=== PATIENT | female | born 1990 | race Caucasian/White ===

== ENCOUNTER 2024-07-27 06:31 | Day surgery (SDC) | payer OTHER, SELFPAY | END 2024-07-27 15:54 | disposition home or self-care (01) | LOC: GI 06:31 | PROVIDERS: ATTENDING PHYSICIAN Internal Medicine Gastroenterology | DX: C20 Malignant neoplasm of rectum (principal); K62.5 Hemorrhage of anus and rectum | CPT/HCPCS: 45385; 45381; 88305; 88342 ==

== ENCOUNTER → 2024-08-01 14:02 | Outpatient (REF) | payer OTHER, SELFPAY | LOC: RAD 14:02 | PROVIDERS: ATTENDING PHYSICIAN Internal Medicine Gastroenterology; FAMILY PHYSICIAN Family Medicine | DX: K62.5 Hemorrhage of anus and rectum (principal); K62.89 Other specified diseases of anus and rectum | CPT/HCPCS: 71260; 74177; Q9967 ==

== ENCOUNTER → 2024-08-08 10:54 | Outpatient (REF) | payer OTHER, SELFPAY | LOC: MRI 3T 10:54 | PROVIDERS: ATTENDING PHYSICIAN Surgery; FAMILY PHYSICIAN Family Medicine | DX: C20 Malignant neoplasm of rectum (principal) | CPT/HCPCS: 72197; A9575 ==

== ENCOUNTER → 2024-08-15 10:15 | Outpatient (REF) | payer OTHER, SELFPAY ==
[2024-08-15 11:13] LABS: % Basophils 0.7 % (0-2); % Eosinophils 2.1 % (0-6); % Immature Granulocytes 0.2 % (0-0.5); % Monocytes 6.9 % (1.7-9.3); % Neutrophils 60.1 % (42.2-75.2); Absolute Eosinophils 0.1 10^3/uL (0-0.7); Absolute Lymphocytes 1.3 10^3/uL (1.2-3.4); Absolute Monocytes 0.3 10^3/uL (0.1-0.6); Absolute Neutrophils 2.5 10^3/uL (1.4-6.5); Hematocrit 39.5 % (37.0-47.0); Hemoglobin 13.5 g/dL (12.0-16.0); Mean Corp Hgb Conc. 34.2 g/dL (33.0-37.0); Mean Corpuscular Hgb 28.4 pg (27.0-31.0); Mean Corpuscular Volume 83.2 fL (81.0-99.0); Mean Platelet Volume 12.1 fL (7.4-10.4); Nucleated Red Blood Cells % 0 %; Platelet Count 226 10^3/uL (130-400); Red Blood Cell Count 4.75 10^6/uL (4.20-5.40); White Blood Cell Count 4.2 10^3/uL (4.8-10.8)
[2024-08-15 12:00] LABS: ALT (SGPT) 15 U/L (0-35); AST (SGOT) 20 U/L (14-36); Albumin 4.8 g/dl (3.5-5.0); Alkaline Phosphatase 31 U/L (38-126); Blood Urea Nitrogen 9 mg/dl (7-17); Calcium 9.8 mg/dl (8.4-10.2); Carbon Dioxide 24 mmol/L (22-30); Chloride 108 mmol/L (98-107); Glucose 84 mg/dl (70-99); Iron 95 ug/dl (37-170); Potassium 4.5 mmol/L (3.5-5.1); Sodium 142 mmol/L (135-145); Total Bilirubin 0.8 mg/dl (0.2-1.3); Total Protein 7.8 g/dl (6.3-8.2); eGFR > 60.00
[2024-08-15 12:09] LABS: Percent Saturation 28 % (20-50); Total Iron Binding Capacity 332 ug/dl (265-497)
[2024-08-15 12:27] LABS: Ferritin 16.3 ng/ml (6.24-137)
[2024-08-15 13:11] LABS: HCG, Urine Qualitative Screen Negative
== END ==
LOC: REG 10:15
PROVIDERS: ATTENDING PHYSICIAN Internal Medicine Hematology & Oncology; FAMILY PHYSICIAN Family Medicine; OTHER PHYSICIAN Radiology Radiation Oncology
DX: C20 Malignant neoplasm of rectum (principal); D52.9 Folate deficiency anemia, unspecified
CPT/HCPCS: 36415; 80053; 81025; 82728; 83540; 83550; 85025

== ENCOUNTER 2024-08-29 06:31 | Day surgery (SDC) | payer OTHER, SELFPAY ==
[2024-08-29 11:56] VITALS: BP 119/72; BMI 25.3
[2024-08-29] MEDS: TYLENOL 1000 MG PO (12:03)
[2024-08-29] MEDS: NORMOSOL-R/PLASMALYTE-A 1000 IV (12:03)
[2024-08-29 13:32] VITALS: BP 95/59
[2024-08-29 13:34] VITALS: BP 96/60
[2024-08-29 13:45] VITALS: BP 96/53
[2024-08-29 14:00] VITALS: BP 90/56
[2024-08-29 14:15] VITALS: BP 96/57
== END 2024-08-29 14:55 | disposition home or self-care (01) ==
LOC: SDS 06:31
PROVIDERS: ATTENDING PHYSICIAN Surgery
DX: C20 Malignant neoplasm of rectum (principal)
CPT/HCPCS: 36561; 45330; 71045; 76000; C1769; C1788

== ENCOUNTER → 2024-09-10 13:41 | Outpatient (REF) | payer OTHER, SELFPAY ==
[2024-09-10 14:07] VITALS: BP 101/72; BP_SYST 80
[2024-09-10 14:54] VITALS: BP 103/53
== END ==
LOC: RADI 13:41
PROVIDERS: ATTENDING PHYSICIAN Internal Medicine Hematology & Oncology; FAMILY PHYSICIAN Family Medicine
DX: C20 Malignant neoplasm of rectum (principal)
CPT/HCPCS: 36573; C1751

== ENCOUNTER 2024-09-25 15:39 | Emergency (ER) | payer OTHER, SELFPAY ==
[2024-09-25 15:43] VITALS: BP 108/67
[2024-09-25 16:17] LABS: HCG, Serum Qualitative Screen Negative
[2024-09-25 16:32] LABS: Hematocrit 35.6 % (37.0-47.0); Hemoglobin 12.5 g/dL (12.0-16.0); Mean Corp Hgb Conc. 35.1 g/dL (33.0-37.0); Mean Corpuscular Volume 81.1 fL (81.0-99.0); Platelet Count 183 10^3/uL (130-400); Red Cell Dist. Width 13.2 % (11.5-14.5)
[2024-09-25 16:33] LABS: Absolute Neutrophils -Man Diff 6.6 10^3/uL (1.4-6.5)
[2024-09-25 16:34] LABS: ALT (SGPT) 13 U/L (0-35); AST (SGOT) 21 U/L (14-36); Albumin 4.4 g/dl (3.5-5.0); Alkaline Phosphatase 39 U/L (38-126); Blood Urea Nitrogen 9 mg/dl (7-17); Calcium 9.4 mg/dl (8.4-10.2); Carbon Dioxide 26 mmol/L (22-30); Chloride 108 mmol/L (98-107); Glucose 144 mg/dl (70-99); Normal RBC Morphology Yes; Platelets Checked Yes; Potassium 3.8 mmol/L (3.5-5.1); Sodium 140 mmol/L (135-145); Total Cells Counted 100; Total Protein 7.2 g/dl (6.3-8.2); eGFR > 60.00
[2024-09-25 17:01] VITALS: BP 96/59
[2024-09-25 18:00] VITALS: BP 88/53
--- NOTE | 2024-09-25 18:18 | ED.GENMED ---
History of Present Illness
General
Chief Complaint: Dizziness
Source: patient
Exam Limitations: none
Time Seen by Provider: 09/25/24 18:16
Nursing documentation reviewed up to this point in time: agreed with
History of Present Illness
History of Present Illness:
Note:
CHIEF COMPLAINT(S)
Right arm weakness and pins and needles sensation in both hands following chemotherapy.
HISTORY OF PRESENT ILLNESS
The patient is a 34-year-old female with a history of colorectal cancer currently undergoing chemotherapy treatment. She received her second infusion today at [facility] from 10:00 AM to 2:30 PM. Post-infusion, she experienced tunnel vision and a
sensation of weakness in her right arm around 2:35 PM. She did not attempt to move the arm, but reported decreased group underwriter strength. Her symptoms included pins and needles in both hands but no numbness. The sensation lasted approximately 20 minutes and
was self-managed with deep breathing. She reports no involvement of her legs, facial asymmetry, or vision changes.
The patient has a known blood clot at her port site, identified by computed tomography (CT) during a prior visit, which is being managed with Apixaban. A peripherally inserted central catheter (PICC) line was inserted. During todays visit, she was
advised by her healthcare team to seek evaluation for her symptoms due to potential complications associated with the right-sided weakness and existing blood clot.
PAST MEDICAL AND SURIGICAL HISTORY
Colorectal cancer with active chemotherapy treatment.
CHRONIC MEDICAL CONDITIONS SIGNIFICANTLY AFFECTING CARE
Presence of a blood clot at the port site managed with Apixaban.
PHYSICAL EXAM
General: no apparent distress, not acutely ill
Neck: supple. no meningeal signs. normal posterior pharynx
Heart: s1/s2 regular rate and rhythm, no murmur. equal radial
pulses.
HEENT: Pupils equal round reactive to light, EOMI
Lungs: no acute respiratory distress. clear bilaterally
Abdomen: normal bowel sounds. not tender. no CVAT
Neuro: alert and oriented. no focal neurological deficits cranial nerves II through XII intact
Skin: no rash
Psychiatric: well kept. interactive and cooperative
Extremities: no edema. no calf tenderness. negative homans. good distal pulses
- Port noted in the left upper chest and right antecubital region inspection.
- Nursing notes reviewed and vital signs reviewed.
PLAN
Discussion with a neurologist to evaluate the potential need for additional investigation or intervention related to right arm weakness and sensory changes.
DIFFERENTIAL DIAGNOSIS
The Differential Diagnosis includes, in no particular order and is not limited to:
1. Chemotherapy-induced neuropathy
2. Transient ischemic attack
3. Cerebral vascular event
4. Upper extremity deep vein thrombosis
5. Peripheral neuropathy secondary to medication
6. Anxiety-induced hyperventilation or panic attack
7. Central nervous system metastasis
8. Electrolyte imbalance
9. Musculoskeletal strain or injury
10. Hypersensitivity reaction to chemotherapy agents
Note:
CARE-UPDATE
09/25/24 - 19:[address] Mcintyre, neurologist. Plan includes ordering CT head and CT angiography of the head and neck. Patient consented to proceed with the suggested evaluations.
CARE-UPDATE
09/25/24 - 20:02
CT head and neck angiography reveals no acute findings, and there is no suspicion of intracranial hemorrhage, intramedullary hemorrhage, or cerebrovascular accident. The patient is stable for discharge and will continue taking Eliquis as previously
prescribed.
Disposition:
SUMMARY OF ENCOUNTER
The patient, a 34-year-old female undergoing chemotherapy for colorectal cancer, presented with right arm weakness and a sensation of pins and needles in both hands after her second infusion. These symptoms lasted for about 20 minutes and were
self-managed. Given her history, the possibility of complications such as ischemic episodes or neuropathy prompted further evaluation. Imaging studies were performed, including a CT head and neck angiography, which revealed no acute findings. The
neurology consultation facilitated the decision for further management.
DISPOSITION
Discharge
ASSESSMENT
Transient right arm weakness, paresthesias, anxiety.
MANAGEMENT OF THE PATIENTS CARE WAS DISCUSSED WITH
Dr. Mcintyre, neurologist.
PLAN
The patient is stable for discharge with instructions to continue treatment with apixaban (Eliquis) as prescribed.
INDEPENDENT REVIEW OF LABS AND INTERPRETATION OF TESTS
- My independent interpretation of CT head and neck angiography shows no acute findings or evidence of intracranial hemorrhage, intramedullary hemorrhage, or cerebrovascular accident.
PATIENT EDUCATION AND COUNSELING
The patient was informed about the potential side effects of chemotherapy, including neuropathic symptoms, and how to manage them. The importance of medication adherence to apixaban was emphasized due to the existing blood clot.
FOLLOW-UP INSTRUCTIONS
The patient should follow up with her primary care physician and oncology team to monitor her symptoms and manage her ongoing treatment.
MEDICATION RECONCILIATION
Continue apixaban (Eliquis) as prescribed.
MEDICAL DECISION MAKING
- Number and Complexity of Problems Addressed: Chronic conditions affecting care include colorectal cancer with active chemotherapy treatment and a known blood clot managed with apixaban. Differential Diagnosis includes chemotherapy-induced
neuropathy, transient ischemic attack, and peripheral neuropathy secondary to medication, among others.
- Data:
Category 1: CT head and neck angiography independently reviewed.
Category 3: Management discussion with Dr. Mcintyre, neurologist.
- Risk:
Consideration of Admission/Observation: Escalation of care including admission/observation was considered given the complexity and risk of the patients presenting complaint and underlying comorbidities. However, ultimately I feel the patient is safe
for outpatient management with close follow-up. Reasoning: Work-up reassuring, does not reveal any acute life/organ threatening processes, patients symptoms well controlled upon reevaluation, reexamination is reassuring, vitals are stable, patient
agreeable with discharge, reliable for follow-up.
DIAGNOSIS
-RIght arm weakness
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
- Anxiety (F41.9)
- History of colorectal cancer (Z85.038
Phy Exam
Physical Exam
Physical Exam:
.
Course
Orders/Labs/Results
Orders:
Orders
09/25/24 15:57
Test Result ONCE
09/25/24 15:58
Complete Blood Count/With Diff Urgent
Comprehensive Metabolic Panel Urgent
HCG, Serum Qualitative Screen Urgent
Manual Differential Urgent
09/25/24 18:35
CT Head & Neck Angio W/wo IV Urgent
Comment:
Reason For Exam: right arm weakness
Abnormal Lab Results
09/25/24
15:58
Hct 35.6 L %
(37.0-47.0)
MPV 11.0 H fL
(7.4-10.4)
Abs Neuts (Manual) 6.6 H 10^3/uL
(1.4-6.5)
Lymphocytes (Manual) 12 L %
(20-51)
Chloride 108 H mmol/L
(98-107)
Glucose 144 H mg/dl
(70-99)
09/25/24 15:58
09/25/24 15:58
Vital Signs
Initial and Last Documented VS:
Initial Vital Signs
Temp Pulse Resp BP Pulse Ox
98.4 F 83 18 108/67 96
09/25/24 15:43 09/25/24 15:43 09/25/24 15:43 09/25/24 15:43 09/25/24 15:43
Last Documented Vital Signs
Temp Pulse Resp BP Pulse Ox
98.4 F 66 24 111/66 98
09/25/24 15:43 09/25/24 19:45 09/25/24 19:45 09/25/24 19:22 09/25/24 19:45
*Pulse Oximetry
SaO2: 96
Oxygen Mode of Delivery: Room air
Patient hypoxic: no
*Critical Care Note
Total Time (30-74mins, 75-104mins- exclusive of procedures): Not Applicable
ED Attending Note
-
Portions of this chart may have been created with voice recognition software.� Occasional wrong word or��sound alike� substitutions may have occurred due to the inherent limitations of voice recognition software.
Discharge Plan
Departure
Patient Disposition: Home (Routine Discharge)
Date of Disposition: 09/25/24
Time of Disposition: 20:05
Patient with high blood pressure during this ER visit?: No
Condition: Good
Discharge Problem:
Right arm weakness, Anxiety
Prescriptions:
No Action
multivitamin Tablet
1 tab PO DAILY
clobetasol 0.05 % Ointment
1 applic TOPICAL PRN PRN (Reason: Lichen Sclerosis)
folic acid 800 mcg Tablet
0.8 mg PO DAILY
Referrals:
Lary Kuhn MD [Family Provider, Family Practice]
Interventions
Interventions:
*Risk Screen - Suicide Last Done: 09/25/24 15:50
*General Assessment Last Done: 09/25/24 15:43
*Neglect/Abuse Screening Last Done: 09/25/24 15:43
*ED- Fall Risk Assessment Last Done: 09/25/24 19:57
*ED COVID-19 Vaccine History Last Done: 09/25/24 18:30
ED- Neurological Assessment Last Done: 09/25/24 18:34
ED Swallowing Screen Last Done: 09/25/24 19:29
Discharge Date and Time
Print Language: IRISH
[2024-09-25 18:22] VITALS: BP 99/72
[2024-09-25 18:29] VITALS: BMI 24.2
[2024-09-25 19:22] VITALS: BP 111/66
[2024-09-25 20:00] VITALS: BP 96/65
== END 2024-09-25 20:23 | disposition home or self-care (01) ==
LOC: EMR 15:39
PROVIDERS: EMERGENCY PHYSICIAN Emergency Medicine; FAMILY PHYSICIAN Family Medicine
DX: R53.1 Weakness (principal); R20.2 Paresthesia of skin; R11.0 Nausea; H53.9 Unspecified visual disturbance; F41.9 Anxiety disorder, unspecified; C19 Malignant neoplasm of rectosigmoid junction; I74.9 Embolism and thrombosis of unspecified artery; G62.0 Drug-induced polyneuropathy; Z79.01 Long term (current) use of anticoagulants
CPT/HCPCS: 99284; 70496; 70498; 80053; 84703; 85025; Q9967